=== PATIENT | male | born 1980 | race Two or more races ===

== ENCOUNTER 2021-08-03 15:00 | Emergency (ER) | payer BC ==
[~2021-08-03] VITALS: Ht 170.2 cm; Wt 79.5 kg
--- NOTE | 2021-08-03 15:09 | PHYS DOC ---
General Adult EDM: Chief Complaint: RAPID HEART RATE HPI: HPI: Patient is a 40 year old male who was sent here by his family physician for SVT. Patient says on June 23, 2021, patient had heart palpitation, patient went to [facility], was found to have SVT. Patient was given adenosine, converted to normal sinus rhythm. Patient was discharged home with metoprolol 25 mg daily. Patient has been taking the medication as directed but he continues to have episodes of heart palpitation. Patient did not have a family physician then, finally found Dr. Phill Tan, and today was the first time that he is was seen in the clinic. When he had not in the clinic, initial vital signs were normal. During the visit, his heart rate went out of rhythm again, they did an EKG in the clinic and it showed that he had heart rate was 194 bpm, therefore patient was sent here for evaluation. Patient denies any chest pain. Patient was walking into the ER room from the triage area patient stated heart rate slowed down. Review of Systems: Review of Systems: Constitutional: Denies fever or chills. [] Eyes: Denies change in visual acuity. [] HENT: Denies nasal congestion or sore throat. [] Respiratory: Denies cough or shortness of breath. [] Cardiovascular: Denies chest pain or edema. [] GI: Denies abdominal pain, nausea, vomiting, bloody stools or diarrhea. [] : Denies dysuria. [] Musculoskeletal: Denies back pain or joint pain. [] Integument: Denies rash. [] Neurologic: Denies headache, focal weakness or sensory changes. [] Endocrine: Denies polyuria or polydipsia. [] Lymphatic: Denies swollen glands. [] Psychiatric: Denies depression or anxiety. [] Heart Score: C/O Chest Pain: N/A Risk Factors: Risk Factors: DM, Current or recent (<one month) smoker, HTN, HLP, family history of CAD, obesity. Risk Scores: Score 0 - 3: 2.5% MACE over next 6 weeks - Discharge Home Score 4 - 6: 20.3% MACE over next 6 weeks - Admit for Clinical Observation Score 7 - 10: 72.7% MACE over next 6 weeks - Early Invasive Strategies Physical Exam: PE: Constitutional: Well developed, well nourished, no acute distress, non-toxic appearance. [] HENT: Normocephalic, atraumatic, bilateral external ears normal, oropharynx moist, no oral exudates, nose normal. [] Eyes: PERRLA, EOMI, conjunctiva normal, no discharge. [] Neck: Normal range of motion, no tenderness, supple, no stridor. [] Cardiovascular:Heart rate regular rhythm, no murmur [] Lungs & Thorax: Bilateral breath sounds clear to auscultation [] Abdomen: Bowel sounds normal, soft, no tenderness, no masses, no pulsatile masses. [] Skin: Warm, dry, no erythema, no rash. [] Back: No tenderness, no CVA tenderness. [] Extremities: No tenderness, no cyanosis, no clubbing, ROM intact, no edema. [] Neurologic: Alert and oriented X 3, normal motor function, normal sensory function, no focal deficits noted. [] Psychologic: Affect normal, judgement normal, mood normal. [] Current Patient Data: Labs: Laboratory Tests Test 08/03/21 15:19 White Blood Count 6.4 x10^3/uL Red Blood Count 5.21 x10^6/uL Hemoglobin 15.8 g/dL Hematocrit 45.0 % Mean Corpuscular Volume 86 fL Mean Corpuscular Hemoglobin 30 pg Mean Corpuscular Hemoglobin Concent 35 g/dL Red Cell Distribution Width 12.9 % Platelet Count 250 x10^3/uL Neutrophils (%) (Auto) 55 % Lymphocytes (%) (Auto) 35 % Monocytes (%) (Auto) 8 % Eosinophils (%) (Auto) 1 % Basophils (%) (Auto) 1 % Neutrophils # (Auto) 3.5 x10^3/uL Lymphocytes # (Auto) 2.3 x10^3/uL Monocytes # (Auto) 0.5 x10^3/uL Eosinophils # (Auto) 0.1 x10^3/uL Basophils # (Auto) 0.0 x10^3/uL Sodium Level 137 mmol/L Potassium Level 3.9 mmol/L Chloride Level 100 mmol/L Carbon Dioxide Level 29 mmol/L Anion Gap 8 Blood Urea Nitrogen 20 mg/dL Creatinine 1.0 mg/dL Estimated GFR (Cockcroft-Gault) 83.6 BUN/Creatinine Ratio 20 Glucose Level 90 mg/dL Calcium Level 9.2 mg/dL Magnesium Level 2.3 mg/dL Total Bilirubin 0.4 mg/dL Aspartate Amino Transf (AST/SGOT) 25 U/L Alanine Aminotransferase (ALT/SGPT) 47 U/L Alkaline Phosphatase 96 U/L Troponin I High Sensitivity 12 ng/L Total Protein 8.6 g/dL Albumin 4.2 g/dL Albumin/Globulin Ratio 1.0 Thyroid Stimulating Hormone (TSH) 2.715 uIU/mL EKG: EKG: EKG was done in ER, heart rate of 67 bpm, no ST segment elevation, normal sinus rhythm. Radiology/Procedures: Radiology/Procedures: [][facility] [address] [place] [address] IMAGING REPORT Signed PATIENT: JOSEFA SHIN MACCOUNT: [id number] : 1980 LOCATION: ER AGE: 40 SEX: M EXAM STATUS: PRE ER ORD. PHYSICIAN: KODAK ISAAC DO REASON: heart palpitation, soa PROCEDURE: CHEST AP ONLY XR CHEST 1V History: Reason: heart palpitation, soa / Spl. Instructions: / History: Comparison: None. Findings: No consolidation or pleural effusion. Normal heart size. No pneumothorax. Impression: 1. No acute cardiopulmonary process. Electronically signed by: Jamal Leslie DO (08/03/2021 3:21 PM) [facility] DICTATED and SIGNED BY: JAMAL LESLIE DO DATE: 08/03/21 [id number] 0 Course & Med Decision Making: Course & Med Decision Making Pertinent Labs and Imaging studies reviewed. (See chart for details) Patient is a 40-year-old male who present to ER due to episode of SVT. Patient was in no SVT in the ER. His lab work come back normal. Patient denies any chest pain or any symptoms. Discussed with information manager on-call Dr. Almanzar who recommended to discharge patient home, prescribed patient 100 mg of f lecainide twice a day, he will see the patient in clinic tomorrow. Dragon Disclaimer: Dragon Disclaimer: This electronic medical record was generated, in whole or in part, using a voice recognition dictation system. Departure Departure Impression: Primary Impression: Paroxysmal SVT (supraventricular tachycardia) Disposition: HOME / SELF CARE / HOMELESS Condition: STABLE Referrals: STEFAN ALMANZAR MD Please follow up with this [employer] tomorrow. Patient Instructions: Supraventricular Tachycardia Additional Instructions: Thank you for visiting our Emergency Department. We appreciate you trusting us with your care. If any additional problems come up don't hesitate to return to visit us. Please follow up with your primary care provider so they can plan additional care if needed and know about the problem that you had. If symptoms worsen come back to the Emergency Department. Any concerning symptoms that start such as chest pain, shortness of air, weakness or numbness on one side of the body, running high fevers or any other concerning symptoms return to the ER. Scripts Flecainide Acetate (FLECAINIDE ACETATE) 100 Mg Tablet 1 TAB PO BID, #60 TAB Prov: KODAK ISAAC DO 08/03/21 KODAK ISAAC DO Aug 03, 2021 15:09
--- NOTE | 2021-08-03 15:23 | RAD ---
XR CHEST 1V History: Reason: heart palpitation, soa / Spl. Instructions: / History: Comparison: None. Findings: No consolidation or pleural effusion. Normal heart size. No pneumothorax. Impression: 1. No acute cardiopulmonary process. Electronically signed by: Jamal Leslie DO (08/03/2021 3:21 PM) [facility] [place]
[2021-08-03 15:34] LABS: BASO % 1 % (0-3); EOS # 0.1 x10^3/uL (0.0-0.7); EOS % 1 % (0-3); HEMOGLOBIN 15.8 g/dL (13.0-17.5); LYMPH # 2.3 x10^3/uL (1.0-4.8); LYMPH % 35 % (24-48); MEAN CORPUSCULAR HEMOGLOBIN 30 pg (25-35); MEAN CORPUSCULAR HGB CONC 35 g/dL (31-37); MEAN CORPUSCULAR VOLUME 86 fL (79-100); MONO # 0.5 x10^3/uL (0.0-1.1); MONO % 8 % (0-9); NEUT # 3.5 x10^3/uL (1.8-7.7); NEUT % 55 % (31-73); PLATELET COUNT 250 x10^3/uL (140-400); RED BLOOD COUNT 5.21 x10^6/uL (4.30-5.70); RED CELL DISTRIBUTION WIDTH 12.9 % (11.5-14.5); WHITE BLOOD COUNT 6.4 x10^3/uL (4.0-11.0)
--- NOTE | 2021-08-03 15:39 | EKG ---
[facility] [address] [place] [address] Test Date: 2021-08-03 Test Time: 15:10:05 Pat Name: JOSEFA SHIN Department: Room: Gender: M [employer]: : 1980 Requested By: KODAK ISAAC Order Number: [id number] Reading MD: Jose Almanzar Measurements Intervals [place] Rate: 74 P: 30 ND: 156 QRS: -34 QRSD: 96 T: 9 QT: 398 QTc: 442 Interpretive Statements SINUS RHYTHM ABNORMAL LEFT AXIS DEVIATION LEFT ANTERIOR FASCICULAR BLOCK ABNORMAL ECG RI6.02 No previous ECG available for comparison Electronically Signed On 08-04-2021 14:27:39 NETWORK CONTROL SUPERVISOR by Jose Almanzar
[2021-08-03 15:49] LABS: CALCIUM 9.2 mg/dL (8.5-10.1); GFR 83.6; POTASSIUM 3.9 mmol/L (3.5-5.1)
[2021-08-03 15:58] LABS: ALBUMIN 4.2 g/dL (3.4-5.0); MAGNESIUM 2.3 mg/dL (1.8-2.4); TOTAL BILIRUBIN 0.4 mg/dL (0.2-1.0); TOTAL PROTEIN 8.6 g/dL (6.4-8.2)
[2021-08-03 16:25] VITALS: BP 115/75
[2021-08-03] MEDS ORDERED: FLEC100T PO (17:17)
== END 2021-08-03 17:38 | disposition home or self-care (01) ==
LOC: ER 15:00
DX: I47.1 Supraventricular tachycardia (principal)
CPT/HCPCS: 36415; 71045; 80053; 83735; 84443; 84484; 85025; 93005; 99285-25

== ENCOUNTER → 2021-09-05 | Outpatient (CLI) | payer BC ==
[~2021-09-05] MED LIST: FLEC100T PO
--- NOTE | 2021-09-06 17:22 | CARD ---
MR#: [id number] Date of Study: 09/05/2021 Ordering Physician: STEFAN GARCIA, Referring Physician: STEFAN GARCIA Tech: Gregoria De La Torre [facility] APPROVED REPORT EXAM: Two-dimensional and M-mode echocardiogram with Doppler and color Doppler. INDICATION Palpitations 2D DIMENSIONS RVDd2.5 (2.9-3.5cm)Left Atrium(2D)3.8 (1.6-4.0cm) IVSd1.0 (0.7-1.1cm)Aortic Root(2D)2.9 (2.0-3.7cm) LVDd5.3 (3.9-5.9cm)LVOT Diameter2.2 (1.8-2.4cm) PWd1.0 (0.7-1.1cm)LVDs3.0 (2.5-4.0cm) FS (%) 43.1 %SV99.8 ml Aortic Valve AoV Peak Hernan.128.9cm/sAoV VTI26.5cm AO Peak GR.6.6mmHgLVOT Peak Hernan.93.8cm/s AO Mean GR.3mmHgAVA (VMAX)2.86cm2 Mitral Valve MV E Mjxbuwkc21.4cm/sMV DECEL [id number] MV A Netqzjog76.6cm/sE/A Ratio1.9 Pulmonary Valve PV Peak Jhepnebp253.3cm/s Tricuspid Valve TR P. Pejrfzvw597zp/sTR Peak Gr.20mmHg LEFT VENTRICLE The left ventricle is normal size. There is normal left ventricular wall thickness. The left ventricu lar systolic function is normal and the ejection fraction is within normal range. LV ejection fracti on of 50 to 55%. There is normal LV segmental wall motion. The left ventricular diastolic function an d filling is normal for age. RIGHT VENTRICLE The right ventricle is normal size. There is normal right ventricular wall thickness. The right ventr icular systolic function is normal. ATRIA The left atrium size is normal. The right atrium size is normal. The interatrial septum is intact wit h no evidence for an atrial septal defect or patent foramen ovale as noted on 2-D or Doppler imaging. AORTIC VALVE The aortic valve is normal in structure and function. Doppler and Color Flow revealed no significant aortic regurgitation. There is no significant aortic valvular stenosis. MITRAL VALVE The mitral valve is normal in structure and function. There is no evidence of mitral valve prolapse. There is no mitral valve stenosis. Doppler and Color-flow revealed trace mitral regurgitation. TRICUSPID VALVE The tricuspid valve is normal in structure and function. Doppler and Color Flow revealed no tricuspid valve regurgitation noted. There is no tricuspid valve stenosis. PULMONIC VALVE The pulmonary valve is normal in structure and function. Doppler and Color Flow revealed trace pulmon ic valvular regurgitation. GREAT VESSELS The aortic root is normal in size. The ascending aorta is normal in size. The IVC is normal in size a nd collapses >50% with inspiration. PERICARDIAL EFFUSION There is no evidence of significant pericardial effusion. Critical Notification Critical Value: No <Conclusion> The left ventricle is normal size. The left ventricular systolic function is normal and the ejection fraction is within normal range. LV ejection fraction of 50 to 55%. There is normal LV segmental wall motion. Doppler and Color Flow revealed no significant aortic regurgitation. There is no significant aortic valvular stenosis. Doppler and Color-flow revealed trace mitral regurgitation. Doppler and Color Flow revealed no tricuspid valve regurgitation noted. Signed by : Samuel Fuentes MD Electronically Approved : 09/06/2021 17:21:55
== END ==
LOC: ECHO 15:00
PROVIDERS: ATTEND Internal Medicine Cardiovascular Disease
DX: I47.1 Supraventricular tachycardia (principal)
CPT/HCPCS: 93306; C8929